=== PATIENT | female | born 1975 | race Asian ===

== ENCOUNTER → 2020-03-28 | Outpatient (CLI) | payer OTHER ==
[~2020-03-28] MED LIST: 0.9 % SODIUM CHLORIDE 10 ML DISP.SYRIN. ID ONE; GADOTERATE 5 MMOL/10ML VIAL. INT ART ONE; IOHEXOL 300 MG/ML 50 ML VIAL. INT ART ONE; LIDOCAINE 1% Multi-Dose 20 ML VIAL. ID ONE
--- NOTE | 2020-03-28 10:57 | KCIC ---
EXAM: Right shoulder injection WITH Fluoroscopic guidance DATE: 03/28/2020 8:30 AM CLINICAL HISTORY: Reason: Internal derangement Rt shoulder, adhesive capsulitis. Right shoulder pain. COMPARISON: None pertinent TECHNIQUE: The patient was informed of the indications and alternatives for this procedure as well as risks and benefits. No immediate contraindication identified. The patient provided informed, written consent. Laterality was confirmed by the entire team following a time out. Following initial fluoroscopic localization, a suitable area was sterilely prepped and draped. Local anesthesia was administered with 1% xylocaine. With intermittent fluoroscopic observation, a 22-gauge spinal needle was advanced into the right shoulder joint sheath/capsule with confirmation of intra-synovial position with infusion of less than 1 cc iodinated contrast. Subsequent infusion 12 mL solution containing 10 cc saline, 5 cc lidocaine 1%, 5 cc Isovue and 0.1 cc gadolinium. Hemostasis with local pressure. Local clinical exam negative for immediate complication. Patient informed re local potential signs or symptoms that may indicate need to return to ER/Ordering physician for further evaluation. Patient informed re precautionary measures after intra-synovial injection of anesthetic. Patient expressed understanding. Performing Physicians: Dr. Trey Coronado Blood Loss: 0 cc Total Fluoroscopy time: 11 seconds Total spot images taken: 0 Total fluoroscopic last image hold images saved: 2 IMPRESSION: Successful intra-synovial injection right shoulder joint with gadolinium contrast pre-MRI per clinical request. Electronically signed by: Nathan Coronado MD (03/28/2020 10:54 AM) [id number]
--- NOTE | 2020-03-28 13:18 | KCIC ---
EXAM: MR arthrogram right shoulder DATE: 03/28/2020 9:30 AM COMPARISON: None INDICATION: Internal derangement right shoulder, adhesive capsulitis, Pain, decreased ROM . TECHNIQUE: Multiplanar, multisequence MRI of the right shoulder was performed following administration of intra-articular gadolinium contrast. FINDINGS: AC joint is congruent. Mild downsloping of the distal acromion. Contrast is seen within the subacromial-subdeltoid bursa as well as in the subcoracoid bursa. Synovial thickening/synovitis within the subscapularis recess with small focus of gas likely iatrogenic. There appears to be a high-grade partial-thickness or full-thickness tear at the posterior aspect of the infraspinatus tendon at the teres minor interface (Series 3 images 13-15). Otherwise no rotator cuff tear. Normal muscle signal and bulk without fatty atrophy. No discrete labral tear. Intra-articular and extra articular long head biceps tendon is intact, normal in signal and morphology. Articular cartilage is preserved. No fracture or osteonecrosis. IMPRESSION: 1. No definite labral tear is seen. 2. There is articular sided thinning of the posterior/inferior portion of the infraspinatus tendon at the teres minor junction suggesting partial thickness tear. A full-thickness component is also a possibility, although not confirmed, particularly given the significant extracapsular contrast. Extra capsular contrast may also be related to a small rent in the rotator interval or biceps tenosynovium Electronically signed by: Nathan Coronado MD (03/28/2020 1:15 PM) [id number]
== END ==
LOC: KCIC 08:25
PROVIDERS: ATTEND Physician Assistant
DX: M75.01 Adhesive capsulitis of right shoulder (principal); M24.811 Other specific joint derangements of right shoulder, not elsewhere classified
CPT/HCPCS: 23350; 73222; 77002; A9575; J3490; Q9967; 73040

== ENCOUNTER → 2020-04-30 | Outpatient (CLI) | payer OTHER ==
[~2020-04-30] MED LIST changes: -0.9 % SODIUM CHLORIDE 10 ML DISP.SYRIN. ID ONE; -GADOTERATE 5 MMOL/10ML VIAL. INT ART ONE; -IOHEXOL 300 MG/ML 50 ML VIAL. INT ART ONE; -LIDOCAINE 1% Multi-Dose 20 ML VIAL. ID ONE; +OXYC1TAB19 PO
== END ==
LOC: LAB 14:12
PROVIDERS: ATTEND Orthopaedic Surgery
DX: Z01.812 Encounter for preprocedural laboratory examination (principal); Z20.828 Contact with and (suspected) exposure to other viral communicable diseases
CPT/HCPCS: U0003

== ENCOUNTER 2020-05-03 08:08 | Day surgery (SDC) | payer OTHER ==
[~2020-05-03] VITALS: Ht 157.5 cm; Wt 61.7 kg
[~2020-05-03 08:08] MED LIST changes: +HYDROmorphone 2 MG/ML VIAL IV PRN; +IV RINGERS,LACTATED 1000ML 1,000 ML IV SCH; +LIDOCAINE 1% PF 2 ML VIAL. ID PRN; +MORPHINE SULFATE 2 MG/ML VIAL. IV PRN; +ONDANSETRON PF 4 MG/2 ML VIAL. IV PRN; -OXYC1TAB19 PO; +PROCHLORPERAZINE 10 MG/2 ML VIAL. IV PRN; +ceFAZolin SODIUM IV Push 1 GM VIAL. IVP PRN; +fentaNYL PF VIAL 100 MCG/2 ML VIAL IV PRN
[2020-05-03] MEDS ORDERED: LIDOCAINE 1% PF 2 ML VIAL. ONE (09:16)
[2020-05-03] MEDS ORDERED: BUPIVACAINE MPF 0.5% 30 ML VIAL. ONE (09:16)
[2020-05-03] MEDS ORDERED: BUPIVACAINE-EPI 0.5%-1:200000 MPF 30 ML VIAL. INJ ONE (09:30)
[2020-05-03] MEDS ORDERED: MIDAZOLAM HCL/PF 2 MG/2 ML VIAL. ONE (09:30)
[2020-05-03] MEDS ORDERED: PROPOFOL 10 MG/ML (20ML) VIAL. IV ONE (10:05)
[2020-05-03] MEDS ORDERED: LIDOCAINE 2% PF 5 ML VIAL. ONE (10:05)
[2020-05-03] MEDS ORDERED: fentaNYL PF VIAL 100 MCG/2 ML VIAL ONE (10:05)
[2020-05-03] MEDS ORDERED: ROCURONIUM 50 MG/5 ML VIAL. ONE (10:05)
[2020-05-03] MEDS ORDERED: ONDANSETRON PF 4 MG/2 ML VIAL. ONE (10:06)
[2020-05-03] MEDS ORDERED: DEXAMETHASONE SOD PHOS 4 MG/ML VIAL ONE (10:06)
[2020-05-03] MEDS ORDERED: EPINEPHrine VIAL 30 MG/30 ML VIAL ONE (10:29)
[2020-05-03] MEDS ORDERED: GLYCOPYRROLATE 1 MG/5 ML VIAL. ONE (11:45)
[2020-05-03] MEDS ORDERED: NEOSTIGMINE METHYLSULFATE 5 MG/5 ML SYRINGE. ONE (11:45)
[2020-05-03] MEDS ORDERED: SEVOFLURANE 61 TO 120 MINUTES. IH ONE (12:15)
[2020-05-03] MEDS ORDERED: OXYC1TAB19 PO (12:26)
--- NOTE | 2020-05-03 12:27 | RAD ---
Right shoulder single view INDICATION: Incorrect needle count postoperatively. COMPARISON: Right shoulder MR arthrogram of 03/28/2020 FINDINGS: Single view right shoulder shows gas in the soft tissues deep to the right deltoid muscle, consistent with recent postoperative change. No radiopaque foreign body is apparent. IMPRESSION: No evidence of radiopaque foreign body in the right shoulder. Electronically signed by: Miri Kimbrough MD (05/03/2020 12:24 PM) [id number]
--- NOTE | 2020-05-03 12:31 | DISCH ---
DISCHARGE INSTRUCTIONS Condition on Discharge Condition on Discharge: Stable Activity After Discharge Activity Instructions for Disc: Activity as tolerated Diet after Discharge Diet after Discharge: Regular Wound Incision Care Wound/Incision Care: Change dressing (remove dressing in 2 days may then shower) Community/Resources/Services Services at Discharge: PT EVALUATE & TREAT (immediate passive and active range of shoulder motion advance to strength as tolerated) Contacting the after DC Call your doctor for: Concerns you may have Follow-Up Follow up with: Dr. Barron 10 days CED BARRON MD May 03, 2020 12:31
[2020-05-03] MEDS ORDERED: oxyCODONE/APAP 7.5/325 1 TAB TABLET PO ONE (13:45)
[2020-05-03 13:55] VITALS: BP 112/67
--- NOTE | 2020-05-03 21:36 | PDOC4 ---
Operative Note Operative Note Date of surgery: 05/03/2020 Preoperative diagnosis: Right shoulder rotator cuff tear Postoperative diagnosis: Right shoulder superior labral tear, subacromial irritation and adhesive capsulitis, with intact rotator cuff Operative procedure: Right shoulder arthroscopy debridement of labrum subacromial decompression and manipulation under anesthesia Surgeon: Anderson Anesthesia: General plus scalene block Estimated blood loss: 5 cc Complications: None Operative indications: Please see my orthopedic clinic note for detailed operative indications and note that patient is a 45-year-old female with right shoulder pain weakness and MRI findings of rotator cuff tear unresponsive to nonoperative treatment. I had gone over with her risks benefits postoperative course of arthroscopic treatment and likely postoperative restrictions and possibility of infection nonhealing nerve or blood vessel damage medical or other anesthetic complications among others she agrees to proceed with surgical evaluation and treatment Operative text: Patient was identified procedure verified patient placed in the supine position on operating table. After adequate amounts of general anesthesia plus a pre-existing scalene block were obtained she was placed decubitus position right side up all bony prominences were well-padded and the right shoulder was prepped and draped in standard sterile fashion with 10 pounds of traction in the arthroscopic arm alvarado. After timeout was performed patient procedure identified and verified a standard posterior portal was established an anterior portal established using spinal needle localization and the shoulder joint was systematically examined. Her biceps anchor was noted to be intact and the biceps tendon noted to have no sign of fraying or subluxation. Rotator cuff insertion including the subscapularis and the bare area of the humerus was noted to be intact. She had significant fraying of the posterior superior labrum which was trimmed back to stable tissue using arthroscopic shaver and bipolar electrocautery. She appeared to have tightness of the capsule with intact remaining labrum and glenohumeral joint. Subacromial space was then entered and she had significant irritation in the subacromial bursa which was debrided back to allow visualization of the bursal side of the rotator cuff noted to be intact. Portion of the irritated coracoacromial ligament was excised as well but no bony resection carried out. Since the rotator cuff was entirely intact the arthroscope was withdrawn joint was drained of arthroscopic fluid and manipulation under anesthesia carried out portals were closed with nylon suture sterile dressings were applied patient was placed in the sling and returned to recovery room in stable condition having tolerated procedure well CED VARELA MD May 03, 2020 21:36
== END 2020-05-03 14:29 | disposition home or self-care (01) ==
LOC: SURG 08:08
PROVIDERS: ATTEND Orthopaedic Surgery
DX: M75.101 Unspecified rotator cuff tear or rupture of right shoulder, not specified as traumatic (principal); S43.431A Superior glenoid labrum lesion of right shoulder, initial encounter; M75.01 Adhesive capsulitis of right shoulder; Z79.899 Other long term (current) drug therapy; Z98.890 Other specified postprocedural states; X58.XXXA Exposure to other specified factors, initial encounter; Y93.89 Activity, other specified; Y92.89 Other specified places as the place of occurrence of the external cause; Y99.8 Other external cause status
CPT/HCPCS: 23700; 29822; 64415; 73020; 81025; 97110; 97161; C1713; J0171; J0690; J1100; J2250; J2405; J2704; J2710; J3010; J3490